=== PATIENT | female | born 1995 | race African-American/Black ===

== ENCOUNTER → 2017-04-02 14:02 | Outpatient (CLI) | payer OTHER ==
[~2017-04-02 14:02] MED LIST: PERCOCET 5-3251 EACH PO; PRENATAL TABLE1 EACH PO; SURFAK240 M1 PO
== END | disposition home or self-care (01) ==
LOC: PPHC LAB 14:02
DX: Z02.0 Encounter for examination for admission to educational institution (principal)

== ENCOUNTER → 2017-04-30 | Outpatient (CLI) | payer OTHER | END | disposition home or self-care (01) | LOC: PPHC 13:55 | DX: Z02.0 Encounter for examination for admission to educational institution (principal) ==

== ENCOUNTER → 2017-04-30 | Outpatient (CLI) | payer OTHER | END | disposition home or self-care (01) | LOC: PPHC LAB 13:52 | DX: Z02.0 Encounter for examination for admission to educational institution (principal) ==